=== PATIENT | male | born 1985 | race Caucasian/White ===

== ENCOUNTER 2016-09-18 22:25 | Emergency (ER) | payer SELFPAY ==
--- NOTE | ~2016-09-18 | ER ---
PATIENT'S NAME: SUNSHINE CALVILLO [facility] AGE: 30 Y [address] ROOM: [place] [address] LOCATION: [facility] ADMIT DATE: 09/18/2016 ER/Outpatient Report DISCHARGE DATE: 09/19/2016 FAMILY PHYSICIAN: PHYSICIAN, BLESSING ATTENDING PHYSICIAN: Cristal Rouse TIME OF ARRIVAL: 22:25. TIME SEEN: 22:50. IDENTIFICATION: A 30-year-old male. CHIEF COMPLAINT: Right foot pain. HISTORY OF PRESENT ILLNESS: The patient is a 30-year-old male living at [place]. He presented with right foot pain off and on for the last three days after wearing boots with metal in them. He has never had pain like this before. His pain is over his right great toe. No injury. ALLERGIES: NO KNOWN DRUG ALLERGIES. CURRENT MEDICATIONS: No current medications. MEDICAL PROBLEMS: He denies. PAST SURGICAL HISTORY: Prior surgeries for an abscess on his neck. SOCIAL HISTORY: The patient is currently living at [facility]. Tobacco use, denies. Alcohol use, occasional. Drug use, denies. REVIEW OF SYSTEMS: All systems were reviewed. No fever or chills. No nausea or vomiting. No other symptoms other than what is noted in the HPI. PHYSICAL EXAMINATION: PATIENT'S NAME: SUNSHINE CALVILLO [facility] AGE: 30 Y [address] ROOM: [place] [address] LOCATION: [facility] ADMIT DATE: 09/18/2016 ER/Outpatient Report DISCHARGE DATE: 09/19/2016 FAMILY PHYSICIAN: PHYSICIAN, BLESSING ATTENDING PHYSICIAN: Cristal Rouse VITAL SIGNS: Height is 5 feet 6 inches and weight is 75.4 kg. Blood pressure was 149/89, pulse was 72, respirations were 16, temperature was 96.9, and sats were 95% on room air. GENERAL: A 30-year-old male in moderate distress. EXTREMITIES: Right lower extremity, full range of motion. No deformities were noted. Good distal pulses. Nontender. Sensation is intact. Left lower extremity, full range of motion. No deformities were noted. Good distal pulses. Sensation is intact. The patient does have pain and tenderness over his right great toe and along the medial aspect of his foot. No warmth. Minimal redness. Decreased range of motion of his first MTP joint secondary to pain. No significant swelling. DIAGNOSTIC STUDIES: X-ray of his right foot was negative for acute fracture or dislocation, pending Radiology over-read. LABORATORY DATA: Hemoglobin of 14.3, hematocrit of 40.3, platelets of 213, white count of 11.2, and 69% neutrophils. INR was 1.08. Sodium of 142, potassium of 3.8, chloride of 107, CO2 of 26, BUN of 11, creatinine of 0.8, and blood sugar of 73. Liver enzymes were normal. Sedimentation rate was elevated at 20. Uric acid was elevated at 8.4. CRP is 1.15. IMPRESSION: Gout. PLAN: Gout hand-out was provided. Indomethacin 50 mg p.o. t.i.d. for seven days, take with food. Follow up with a primary care physician prior to the completion of medications. Follow up sooner if any problems or concerns. Cards for Primary Care offices were given to the patient here in the Emergency Room. MD DALLAS KHANNA/camila /[id number] d: 09/19/166 t: 09/20/16 182, OUTPATIENT REPORT
[2016-09-18 23:24] LABS: BASOPHIL # 0.1 K/uL (0.0-0.2); BASOPHIL % 0.8 %; EOSINOPHIL # 0.2 K/uL (0.0-0.5); EOSINOPHIL % 2.7 %; HEMOGLOBIN 14.8 g/dL (12.0-17.0); IMMATURE GRANULOCYTE % 0.2 %; LYMPHOCYTE # 2.4 K/uL (0.8-4.0); MCH 30.8 pg (27.0-34.0); MCHC 34.4 gm/dL (32.0-36.5); MCV 89.6 fl (83.0-98.0); MONOCYTE # 0.8 K/uL (0.0-1.0); MONOCYTE % 9.5 %; MPV 9.5 fl (9.4-12.4); NEUTROPHIL # (ANC) 5.1 K/uL (1.4-9.0); NEUTROPHIL % 58.8 %; NRBC % 0 /100WBC (0-0.00); PLATELET COUNT 281 K/uL (150-450); RDW-CV 11.4 % (11.9-14.6); WBC 8.6 K/uL (4.0-11.0)
[2016-09-18 23:42] LABS: ALBUMIN 4.1 gm/dL (3.5-5.0); ALK PHOS 42 IU/L (33-138); ALT 43 IU/L (12-78); ANION GAP 12.8 (10.0-19.0); AST 26 IU/L (10-40); BLOOD UREA NITROGEN 11 mg/dL (6-24); CALCIUM 8.9 mg/dL (8.5-10.5); CHLORIDE 107 mMol/L (96-110); CO2 26 mMol/L (22-32); CREATININE 0.8 mg/dL (0.6-1.3); ESTIMATED GFR (MDRD EQUATION) > 60; POTASSIUM 3.8 mMol/L (3.7-5.1); SODIUM 142 mMol/L (135-145); TOTAL BILIRUBIN 0.3 mg/dL (0.0-1.5); TOTAL PROTEIN 8.2 g/dL (6.0-8.4)
== END 2016-09-19 00:09 | disposition disaster alternative care site (69) ==
LOC: GMED 22:25
PROVIDERS: Family Medicine
DX: M10.9 Gout, unspecified (principal)

== ENCOUNTER 2016-09-19 20:45 | Emergency (ER) | payer SELFPAY ==
--- NOTE | ~2016-09-19 | ER ---
PATIENT'S NAME: SUNSHINE CALVILLO [facility] AGE: 30 Y [address] ROOM: [place] [address] LOCATION: [facility] ADMIT DATE: 09/19/2016 ER/Outpatient Report DISCHARGE DATE: 09/19/2016 FAMILY PHYSICIAN: PHYSICIAN, NO ATTENDING PHYSICIAN: Cristal Rouse Time of Arrival: 2045 hours. Time Seen: 2105 hours. IDENTIFICATION: A 30-year-old male. CHIEF COMPLAINT: Right great toe pain. HISTORY OF PRESENT ILLNESS: The patient is a 30-year-old male who was seen last night, diagnosed with gout, but did not fill his medications and is here with increased pain. No fever or chills. No other problems or concerns. ALLERGIES: NO KNOWN DRUG ALLERGIES. CURRENT MEDICATIONS: Denies. MEDICAL PROBLEMS: Gout. SOCIAL HISTORY: The patient lives at the [facility]. Tobacco use, denies. History of drug use history. REVIEW OF SYSTEMS: All systems reviewed and negative other than what is noted in the HPI. PHYSICAL EXAMINATION: Right lower extremity neurovascularly intact. The patient has erythema of the right great toe at the base, tender to palpation. Decreased range of motion. LABS AND DIAGNOSTICS: X-ray was reviewed from last night and was negative per Radiology. Lab work was reviewed from last night. Negative chemistry panel other than uric acid elevated at 8.4, CRP 1.15. White count was normal. Sedimentation rate elevated at 20. PATIENT'S NAME: SUNSHINE CALVILLO [facility] AGE: 30 Y [address] ROOM: [place] [address] LOCATION: [facility] ADMIT DATE: 09/19/2016 ER/Outpatient Report DISCHARGE DATE: 09/19/2016 FAMILY PHYSICIAN: PHYSICIAN, NO ATTENDING PHYSICIAN: Cristal Rouse IMPRESSION: Gout. PLAN: Toradol 60 mg IM x1 here in the emergency room. We did offer to give the patient a cab voucher to get to [facility] to get his Indocin, the patient did not wish to do so, he will get it tomorrow from [place]. Prednisone 20 mg p.o. given here in the emergency room. Indomethacin 50 mg t.i.d. as prescribed last night for 1 week. Elevate extremity. Recheck on Tuesday. The patient understands and agrees and all questions have been answered. MD DALLAS KHANNA/camila /[id number] d: 09/20/16 025 t: 09/20/16 0404, OUTPATIENT REPORT
== END 2016-09-19 21:40 | disposition disaster alternative care site (69) ==
LOC: GMED 20:45
DX: M10.9 Gout, unspecified (principal)
CPT/HCPCS: J1885; J7512